=== PATIENT | female | born 1955 | race Caucasian/White ===

== ENCOUNTER 2025-02-02 05:23 | Observation (INO) ==
--- NOTE | 2025-01-02 15:46 | PAT Medication Instructions ---
Medication Instructions Date of Service January 02, 2025 Home Medications multivit-iron 18 mg-folic acid 400 mcg-calcium 500 mg-minerals tablet (One-A-Day Womens Formula) 1 tab PO QPM calcium 600 mg (as carbonate)-vitamin D3 12.5 mcg (500 unit) capsule (Calcium with Vit D3) 1 cap PO QPM lutein 20 mg capsule 20 mg PO QPM acetaminophen 500 mg tablet 500 - 1,000 mg PO TID PRN Take morning of surgery With a small sip of water, OTHERWISE NOTHING TO EAT OR DRINK AFTER MIDNIGHT: acetaminophen 500 mg tablet 500 - 1,000 mg PO TID PRN(if needed) Take evening before surgery multivit-iron 18 mg-folic acid 400 mcg-calcium 500 mg-minerals tablet (One-A-Day Womens Formula) 1 tab PO QPM calcium 600 mg (as carbonate)-vitamin D3 12.5 mcg (500 unit) capsule (Calcium with Vit D3) 1 cap PO QPM lutein 20 mg capsule 20 mg PO QPM acetaminophen 500 mg tablet 500 - 1,000 mg PO TID PRN(if needed) Other Notes If you have any questions please call us at [phone] or [phone] or [phone] or [phone]
--- NOTE | 2025-01-09 08:45 | Anesthesiology Consultation ---
Date of Service January 09, 2025 Assessment & Plan (1) Encounter for pre-operative examination: Chart Review Chart Review: Acceptable Risk for Surgery and Patient seen in Pre Admission Testing Pt currently scheduled as 23 hours observation. If surgeon decides to change patient to Same Day Joint, patient would be acceptable risk for GILMAR, pending patient is motivated, has good support and surgeon's office completes Same Day [facility] Program preop requirements. Per PAT appt on 01/09/25, no recent illness/disease exposures, illness related symptoms, or recent illness/disease positive tests. Will leave to surgeon's discretion if preop Covid testing needed Teaching & Discussion Pre-Anesthesia Teaching/Discussion Notes: Instructed NPO after midnight before surgery,except medications with 15 cc of water. Medication instructions provided according to the PAT guidelines. History Surgery Operation Date: 02/02/25 11:00 Proposed Procedures p Right Anterior Total Hip Arthroplasty - Kadeem Fernandes, Height/Weight Height: 5 ft 5 in Weight: 52.3 kg Allergies Allergy/AdvReac Type Severity Reaction Status Date / Time amoxicillin Allergy Intermediate Rash Verified 01/02/25 14:03 ibuprofen AdvReac Mild UTI Verified 01/02/25 14:04 symptoms, burning symptoms Medications Home Medications Medication Instructions Recorded Confirmed Last Taken multivit-iron 18 mg-folic acid 400 1 tab PO QPM 06/16/22 01/02/25 Unknown mcg-calcium 500 mg-minerals tablet (One-A-Day Womens Formula) calcium 600 mg (as 1 cap PO QPM 07/19/24 01/02/25 Unknown carbonate)-vitamin D3 12.5 mcg (500 unit) capsule (Calcium with Vit D3) lutein 20 mg capsule 20 mg PO QPM 07/19/24 01/02/25 Unknown acetaminophen 500 mg tablet 500 - 1,000 mg PO TID PRN Pain 01/02/25 01/02/25 Unknown Past Medical History Medical History History of COVID- ~2021: mild flu symptoms, resolved. Osteoarthritis Exercise / Class Metabolic Activity II 4-5 Yardwork/Stairs/Walk up hill (one flight of stairs- no chest pain or SOB ) Past Family History Family History Mother Diabetes Breast cancer age 89 Hypertension Father Prostate cancer Brother Hypertension Brother No problems noted. Daughter Mood disorder Son No problems noted. Other No family history of adverse response to anesthesia Denies family history of Ovarian cancer Myocardial infarction Lung cancer Colorectal cancer Past Surgical History Surgical History H/O wisdom tooth extraction History of colonoscopy Past Anesthesia History No Hx of Anesthesia Complications and No Family Hx of Anesthesia Complications History of PONV No Hx of PONV and No Hx of Motion Sickness Social History Smoking Status: Never smoker Do You Dip or Chew Tobacco: No Hx Alcohol Use: Yes Alcohol type: wine and hard liquor alcohol intake frequency: a few times a week Hx Substance Use: No substance use type: does not use Review of Systems - Hx of snoring- no witnessed apnea- no hx of sleep study Patient denies chest pain, shortness of breath, dyspnea on exertion, reflux, cough, wheezing, palpitations. No hx of seizures, stroke, MA,. No hx of blood clots or blood transfusions Physical Exam Vital Signs VITALS BP 105/68 P 64 TEMP 98.8 SP02 98% RESP 16 Constitutional no acute distress ENMT Mouth: no TMJ clicking Thyromental Distance: > or= 3.5 Finger Breadths (3.5) Mallampati Class: III Crowns to molars Neck neck extension not limited Respiratory normal respiratory effort; no respiratory distress Auscultation: lungs clear to auscultation bilaterally; no wheezes Cardiovascular Rate/Rhythm: regular rate and regular rhythm Heart Sounds: no murmur Vessels: no carotid bruit Musculoskeletal Spine: + pain with cervical ROM (mild) Extremities: extremities normal to inspection Psychiatric Orientation: alert Lab Results Anesthesia Preop Results Results Anesthesia Widget: WBC 3.34 K/ul (4.8-10.8) L 01/09/25 Hgb 13.4 g/dl (12.0-16.0) 01/09/25 Hct 40.7 % (37.0-47.0) 01/09/25 Plt 260 K/uL (130-400) 01/09/25 Na 139 mmol/L (136-145) 01/09/25 K 4.7 mmol/L (3.5-5.1) 01/09/25 Cl 104 mmol/L (98-107) 01/09/25 CO2 29 mmol/L (21-32) 01/09/25 BUN 18 mg/dl (6-23) 01/09/25 Creat 0.71 mg/dl (0.6-1.2) 01/09/25 Glucose Level 91 mg/dl (70-99(Fasting)) 01/09/25 PT 10.8 Seconds (9.0-12.0) 01/09/25 PTT 28 Seconds (21-31) 01/09/25 INR 1.0 (0.9-1.1) 01/09/25 Blood Type A Positive 01/09/25 Antibody Screen NEGATIVE 01/09/25 Testing Electrocardiogram Date: 01/09/25 Findings: + SB @ (59bpm ) Incomplete RBBB Chest X-Ray Date: 01/09/25 Findings: + NAD Cervical Spine Date: 07/21/24 IMPRESSION: Grade I anterolisthesis of C2 over C3, C3 over C4 and C4 over C5. Moderate narrowing of C5-C6 and C6-C7 intervertebral disc spaces.
--- NOTE | 2025-01-31 12:48 | History & Physical Report ---
Date of Service January 31, 2025 Assessment & Plan (1) Osteoarthritis of right hip: We will proceed with a right anterior total of arthroplasty. Postoperatively, she will be started on aspirin for DVT prophylaxis and kept overnight in the hospital for postop medical management. She plans to have the hospital set up home health for discharge. History of Present Illness Chief Complaint: Osteoarthritis right hip. Primary Care Provider: Barb Penaloza MD Debbie is a pleasant 69-year-old female who has been dealing with chronic increasing right hip and groin pain. It has been going on for the last 2 years. She has failed extensive conservative treatment including multiple injections. X-rays and clinical examination of the diagnostic for advanced osteoarthritis of the right hip. After failing conservative treatment, she has elected to proceed with a right tota hip arthroplasty Allergies Allergy/AdvReac Type Severity Reaction Status Date / Time amoxicillin Allergy Intermediate Rash Verified 01/02/25 14:03 ibuprofen AdvReac Mild UTI Verified 01/02/25 14:04 symptoms, burning symptoms Home Medications Medication Instructions Recorded Confirmed Type multivit-iron 18 mg-folic acid 400 1 tab PO QPM 06/16/22 01/02/25 History mcg-calcium 500 mg-minerals tablet (One-A-Day Womens Formula) calcium 600 mg (as 1 cap PO QPM 07/19/24 01/02/25 History carbonate)-vitamin D3 12.5 mcg (500 unit) capsule (Calcium with Vit D3) lutein 20 mg capsule 20 mg PO QPM 07/19/24 01/02/25 History acetaminophen 500 mg tablet 500 - 1,000 mg PO TID PRN Pain 01/02/25 01/02/25 History Past Med/Surg History Problem List (Updated 01/31/25 @ 12:48 by Kadeem Fernandes DO) Osteoarthritis of right hip Encounter for pre-operative examination Back pain Hip arthritis Medical History History of COVID-19 ~2021: mild flu symptoms, resolved. Osteoarthritis Surgical History History of colonoscopy H/O wisdom tooth extraction Family History Mother Diabetes Breast cancer age 89 Hypertension Father Prostate cancer Brother Hypertension Brother No problems noted. Daughter Mood disorder Son No problems noted. Other No family history of adverse response to anesthesia Denies family history of Ovarian cancer Myocardial infarction Lung cancer Colorectal cancer Social History Smoking Status: Never smoker Second Hand Exposure: No; Do You Dip or Chew Tobacco: No; Tobacco Cessation Education Requested by Patient: No Hx Alcohol Use: Yes Alcohol type: wine and hard liquor Alcohol Intake Frequency: 2-3 x/Week Hx Substance Use: No Preferred Language: Czech Communication Ability: Effective Visual Impairment: No Limitations Hearing Ability: Normal Criminal Justice Program Director Required: No Beliefs That Will Affect Care: None marital status: Current Living Situation: Spouse current occupational status: retired current occupation: retired ortho assist How many Children do You have: 2 Other Information That Helps Us Care for You: No Feels Safe at Home: Yes Safety Concerns: Feels Safe At This Time Childhood Exposure to Second-Hand Smoke: No Diet: regular caffeine: Yes during the past year weight has: remained stable Dental Care, Regularly: Yes Physical Activity Frequency: 3-4 Times per Week Seatbelt Use: always Sunscreen Use: No Assistive Devices: Cane, Contacts and Glasses Assistive Devices Comment: cane for long distance Review of Systems All systems reviewed & are unremarkable except as noted in HPI & below. Physical Exam On physical examination of the right hip, she has decreased range of motion. She has pain with internal/external rotation. All of her pains located in the groin.. Constitutional WD/WN, vitals as above Eyes PERRL, conjunctivae normal, anicteric sclerae ENMT external ear and nose normal, oropharynx normal Neck trachea midline, no thyromegaly Respiratory normal respiratory effort Cardiovascular RRR, no murmur, no edema Gastrointestinal (Abdomen) normal bowel sounds, soft, nontender, no hepatosplenomegaly Psychiatric A+Ox3, euthymic affect Results & Data Results & Data Laboratory Results . Diagnostic Findings X-rays of the right hip show advanced osteoarthritis with joint space narrowing, osteophyte formation, and [id number] articulation. PG Care Time/CCT Total # of Minutes Spent Total Time Spent with Patient: Total time spent is greater than 50% in coordination of care (as documented) at patient's floor/unit and/or counseling patient: Coding Level of Care Code None Diagnoses Osteoarthritis of right hip M16.11
[~2025-02-02 05:23] MED LIST: ALLERGY Noted to ORDERED Medication SCH
[2025-02-02] MEDS: LR 500ML BOLUS, THEN 15ML/HR IV SCH (05:50)
[2025-02-02] MEDS ORDERED: ceFAZolin 2000MG 2,000 MG/15 ML SYR IV SCH (06:00)
[2025-02-02] MEDS: LR 60ML/HR IV SCH (06:02)
[2025-02-02] MEDS: GABAPENTIN 300 MG CAP PO SCH (06:02)
[2025-02-02] MEDS: dexAMETHasone**PF** 10 MG/ML VIAL IV SCH (06:03)
[2025-02-02] MEDS: FAMOTIDINE 20 MG TAB PO SCH (06:03)
[2025-02-02] MEDS: ACETAMINOPHEN 500 MG TAB PO SCH ×2 (06:03→13:39)
[2025-02-02] MEDS ORDERED: ROPIVACAINE 0.5% 5 MG/ML 30 ML VIAL ONE (06:13)
[2025-02-02] MEDS ORDERED: HYDROmorphone INJ 1 MG/ML SYRINGE IV PRN (06:32)
[2025-02-02] MEDS ORDERED: ePHEDrine sulfate 50 MG/ML AMP IV PRN (06:32)
[2025-02-02] MEDS ORDERED: ONDANSETRON INJ 2 MG/ML 2 ML VIAL IV PRN ×2 (06:32→09:56)
[2025-02-02] MEDS ORDERED: KETOROLAC 30 MG/ML VIAL IV PRN (06:32)
[2025-02-02] MEDS ORDERED: ATROPINE SULFATE 0.1 MG/ML 10ML SYR IV PRN (06:32)
[2025-02-02] MEDS ORDERED: MIDAZOLAM HCL 1 MG/ML 2ML VIAL ONE (06:34)
--- NOTE | 2025-02-02 06:34 | History & Physical Bridge Note ---
Date of Service February 02, 2025 History & Physical Bridge Note I have examined the patient, reviewed the History & Physical and in the interval since the performance of the History & Physical I have noted the following changes of clinical significance: no changes noted
[2025-02-02] MEDS ORDERED: ONDANSETRON INJ 2 MG/ML 2 ML VIAL ONE (06:40)
[2025-02-02] MEDS ORDERED: PROPOFOL IV EMULSION 10 MG/ML 20 ML VIAL IV ONE (06:40)
[2025-02-02] MEDS: TRANEXAMIC ACID 1,000 MG **IV Pre-op IV SCH (06:44)
[2025-02-02] MEDS ORDERED: Nursing to Pharmacy Communication SCH (06:45)
[2025-02-02] MEDS: ceFAZolin 2000MG 2,000 MG/15 ML SYR IV SCH ×2 (06:58→13:39)
[2025-02-02] MEDS: ROPIV 0.5% 246mg, Ketorolac 30mg, EPINEPHrine 0.5mg in NSS INFIL SCH (07:32)
[2025-02-02] MEDS: ORTHO JOINT ANESTHETIC ONE (07:33)
[2025-02-02] MEDS: TRANEXAMIC ACID 1,000 MG **IV Intra-op IV SCH (07:50)
--- NOTE | 2025-02-02 07:56 | Operative Report ---
PG Post Operative Report Pre & Post Diagnosis Operation Date: 02/02/25 07:00 Pre-Op Diagnosis: Right Hip Arthritis Post-Op Diagnosis: Right Hip Arthritis I identified the patient and participated in the time-out.: Yes Procedure Operation Date: 02/02/25 07:00 Actual Procedures p Right Anterior Total Hip Arthroplasty(Right) - Kadeem Fernandes DO Surgeon Kadeem Fernandes DO Clinical Education Manager Duong Paz PA-C Estimated Blood Loss 150 Findings Consistent with Post-Op Diagnosis Specimens Right femoral head Description of Procedure Implants used I used a [employer]immer[employer] total hip arthroplasty system with a size 4 standard offset Z1 stem, a 46 mm G7 cup with a 25mm screw, an E1 polyethylene liner, a 32 mm ceramic head with a +3.5 neck. Mary arrived at the hospital for the above procedure. She was seen in the preoperative holding area and the operative extremity was identified and signed. She was given a spinal anesthetic, a preoperative antibiotic, and TXA. She was then taken back to the operating room and laid on the table in the supine position. She was given basic sedation. The operative leg was secured to a ristst leg positioner. The hip was then prepped and draped in sterile fashion. A timeout was done and the patient and the operative extremity was properly identified. An anterior approach was used. Dissection was taken down through the fascia and the tensor muscle belly was retracted laterally and the rectus was retracted medially. The circumflex vessels were identified and ligated. The capsule was then incised and tagged for later repair. The femoral neck was then cut and the femoral head was removed. The acetabulum was exposed. Time was spent doing a complete circumferential labral release. Sequential reaming of the acetabulum up to a size 45 reamer was done. Final reamings were done under fluoroscopy to ensure appropriate version. A Biomet 46 mm G7 cup was then impacted into place. A single 25 mm screw was placed. The E1 polyethylene liner was then snapped into place. Surrounding soft tissues were then injected with 100 cc of an orthopedic pain control cocktail. The proximal femur was then exposed. Sequential broaching up to a size 4 broach was done. Off that broach a size 32 head with a +3.5 neck was trialed. The hip was reduced and fluoroscopic images showed anatomic alignment of the implants in acceptable length. The broach was removed. The final size 4 standard offset Z1 stem was then impacted into place. A ceramic 32+3.5 mm head with a neck was t hen impacted onto the stem and the hip was reduced. Final fluoroscopic images showed anatomic alignment of the hip. The capsule was then closed with #1 Vicryl suture. A dilute betadyne lavage was then done for 3 minutes. The joint was then irrigated with normal saline solution. The fascia was closed with #1 PDS suture. Skin was closed with 2-0 Vicryl, sampson, and a Silverlon dressing. She was then transferred to a hospital bed and taken to the post anesthesia care unit in stable condition. She tolerated the procedure well. Duong Paz PA-C, was present for the entire procedure. He was critical for patient positioning, prepping, draping, retraction exposure, wound closure and application of sterile dressing. I attest to the content of the Intraoperative Record and any orders documented therein. Any exceptions are noted below.
--- NOTE | 2025-02-02 08:58 | XRay Report ---
XR hip 1V RT w pelvis CLINICAL HISTORY: IN PACU - Post Surgical COMPARISON: 07/21/2024 FINDINGS: Interval right hip prosthesis shows no hardware complication. There is expected soft tissu e gas. IMPRESSION: Unremarkable postoperative exam. ACT 112: Negative or not required by law. Electronically signed by: Darron Bonilla M.D. 02/02/2025 8:57 AM
--- NOTE | 2025-02-02 09:29 | Fluoroscopy Report ---
FL hip RT 1V CLINICAL HISTORY: RIGHT ANTERIOR GILMAR COMPARISON STUDY: 12/21/2022 FLUOROSCOPY TIME: 16 seconds FLUOROSCOPY IMAGES: 1 EXPOSURE DOSE: 1.1 mGy FINDINGS: Fluoroscopy was provided for right hip prosthesis placement. IMPRESSION: Intraoperative fluoroscopy. ACT 112: Negative or not required by law. Electronically signed by: Darron Bonilla M.D. 02/02/2025 9:28 AM
[2025-02-02] MEDS ORDERED: oxyCODONE HCL IR 5 MG TAB (IMMEDIATE RELEASE) PO PRN (09:56)
[2025-02-02] MEDS ORDERED: HYDROmorphone INJ 0.5 MG/0.5 ML SYR IV PRN (09:56)
[2025-02-02] MEDS ORDERED: MAGNESIUM HYDROXIDE SUSP 30 ML UDC PO PRN (09:56)
[2025-02-02] MEDS ORDERED: bisacodyL 10 MG SUPP PR PRN (09:56)
[2025-02-02] MEDS ORDERED: METOCLOPRAMIDE HCL INJ 5 MG/ML 2 ML VIAL IV PRN (09:56)
[2025-02-02] MEDS ORDERED: NALOXONE HCL 0.4 MG/1 ML VIAL/CARP IV PRN (09:56)
[2025-02-02] MEDS ORDERED: diphenhydrAMINE Capsule 25 MG CAP PO PRN (09:56)
[2025-02-02 10:00] VITALS: RESP 18
[2025-02-02] MEDS: ceFAZolin 2,000 MG/15 ML IV PUSH IV ONE (10:01)
[2025-02-02] MEDS: SODIUM CHLORIDE 0.9% 1,000 ML IV SCH (10:02)
[2025-02-02] MEDS: MULTIVITAMIN TAB PO SCH (11:30)
[2025-02-02] MEDS: ASPIRIN 81 MG ECTAB PO SCH (11:30)
[2025-02-02] MEDS: KETOROLAC TROMETHAMINE 15 MG/ML VIAL IV SCH (11:30)
[2025-02-02] MEDS: DOCUSATE SODIUM 100 MG CAP PO SCH (11:34)
--- NOTE | 2025-02-02 12:35 | Anesthesiology Progress Note ---
Date of Service February 02, 2025 Anesthesia Post Procedure Vital Signs Vital Signs: Temp Pulse Pulse Resp BP BP Pulse Ox 02/02/25 11:38 36.5 C 72 18 129/74 100 02/02/25 10:45 36.3 C L 68 18 128/79 100 02/02/25 10:26 36.4 C L 64 18 132/60 100 02/02/25 09:45 36.5 C 65 18 123/71 100 02/02/25 09:30 60 12 115/57 L 100 02/02/25 09:20 66 14 113/56 L 99 02/02/25 09:10 66 14 105/58 L 100 02/02/25 09:00 64 16 111/59 L 100 02/02/25 08:50 66 12 107/55 L 100 02/02/25 08:40 70 14 114/53 L 100 02/02/25 08:30 67 16 102/50 L 100 02/02/25 08:22 36 C L 72 18 105/53 L 100 02/02/25 05:41 36.6 C 64 20 138/72 100 O2 Del Method O2 Flow Rate 02/02/25 11:38 Room Air 02/02/25 10:45 Room Air 02/02/25 10:26 Room Air 02/02/25 09:45 Room Air 02/02/25 09:30 Room Air 02/02/25 09:20 Room Air 02/02/25 09:10 Room Air 02/02/25 09:00 Room Air 02/02/25 08:50 Room Air 02/02/25 08:40 Room Air 02/02/25 08:30 Oxymask 4 02/02/25 08:22 Oxymask 6 02/02/25 05:41 Room Air Pain Intensity Right Hip: Pain Intensity: 4 Transfer of Care Handoff Completed per policy Notes Mental Status: alert / awake / arousable Patient Amnestic to Procedure: Yes Nausea / Vomiting: adequately controlled Pain: adequately controlled Airway Patency, RR, SpO2: stable & adequate BP & HR: stable & adequate Hydration State: stable & adequate Neuraxial Anesthesia: was administered and sensory block is resolving Anesthetic Complications: no major complications apparent
[2025-02-02] MEDS: SENNA 8.6 MG TAB PO SCH (21:30)
[2025-02-03 07:38] VITALS: BP 116/64; PULSE 63; TEMP 97.9; O2SAT 99
[2025-02-03] MEDS: dexAMETHasone 4 MG TAB PO SCH (09:10)
--- NOTE | 2025-02-03 10:37 | Orthopedic Progress Note ---
Date of Service February 03, 2025 Assessment & Plan (1) S/P total right hip arthroplasty: Overall she is doing fairly well. She is not having much pain in the lateral right hip. She will be seen by physical therapy today for ambulation and range of motion exercises. She is on aspirin for DVT prophylaxis. She can be discharged to home later today. She will follow-up orthopedics in 2 weeks. Jada Hernandez was seen and examined at bedside this morning. Overall she is doing very well. She is not having much pain in the right hip. She has been up and ambulating to the bathroom. She has no complaints.. Review of Systems All systems reviewed & are unremarkable except as noted in HPI & below. Physical Exam On physical exam of the right hip, the dressing is clean and dry. Her leg is out full extension. She has active dorsiflexion and plantarflexion of her right ankle.. Results & Data Results & Data Laboratory Results . Diagnostic Findings Postoperative x-rays of the right hip show the prosthesis to be in anatomic alignment without any evidence of fracture complication, or loosening.. PG Care Time/CCT Total # of Minutes Spent Total Time Spent with Patient: Total time spent is greater than 50% in coordination of care (as documented) at patient's floor/unit and/or counseling patient: Coding Level of Care Code 60895 Post Operative Follow-Up Diagnoses S/P total right hip arthroplasty Z96.641
== END 2025-02-03 11:17 | disposition home or self-care (01) ==
LOC: ASU 05:23 → 3W 05:23